=== PATIENT | male | born 1990 | race Caucasian/White ===

== ENCOUNTER 2016-07-27 18:19 | Inpatient (IN) | payer OTHER ==
[~2016-07-27 18:19] MED LIST: CONC54TA4
[2016-07-27] MEDS ORDERED: HYDROmorphone HCL PF 1 MG/ML VIAL ONE (18:23)
[2016-07-27] MEDS ORDERED: ONDANSETRON HCL 4 MG/2 ML VIAL ONE (18:23)
[2016-07-27] MEDS ORDERED: LORazepam 2 MG/ML VIAL ONE (18:29)
[2016-07-27 18:30] VITALS: O2SAT 100
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
[2016-07-27 18:48] LABS: AUTOMATED NEUTROPHIL # 5.7 TH/MM3 (1.8-7.7); BASOPHIL # 0.1 TH/MM3 (0-0.2); BASOPHIL % 0.7 % (0.0-2.0); EOSINOPHIL # 0.1 TH/MM3 (0-0.4); EOSINOPHIL % 0.9 % (0.0-4.0); HEMATOCRIT 45.4 % (39.0-51.0); HEMO FLAGS DIFF FINAL; LYMPH % 37.6 % (9.0-44.0); LYMPHOCYTE # 4.1 TH/MM3 (1.0-4.8); MEAN CELL VOLUME 86.9 FL (80.0-100.0); MEAN CORPUSCULAR HEMOGLOBIN 29.1 PG (27.0-34.0); MEAN CORPUSCULAR HGB CONC 33.5 % (32.0-36.0); MONO % 8.6 % (0.0-8.0); NEUT % 52.2 % (16.0-70.0); PLATELET COUNT 228 TH/MM3 (150-450); RED BLOOD COUNT 5.22 MIL/MM3 (4.50-5.90); RED CELL DISTRIBUTION WIDTH 14.1 % (11.6-17.2); WHITE BLOOD COUNT 10.8 TH/MM3 (4.0-11.0)
[2016-07-27 18:49] LABS: I-STAT SODIUM 140 MMOL/L (138-146)
[2016-07-27 18:59] LABS: APTT (PATIENT) 25.4 SEC (24.3-30.1); PROTHROMBIN TIME - PATIENT 10.7 SEC (9.8-11.6)
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
[2016-07-27 19:05] VITALS: BP 125/60; PULSE 67; RESP 18; TEMP 98.3; O2SAT 100
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
[2016-07-27] MEDS ORDERED: CHLORHEXIDINE GLUCONATE 2 % 1 PACK (2 CLOTHS) TOP PRN (19:15)
[2016-07-27] MEDS ORDERED: MISCELLANEOUS NURSING INFORMATION XX SCH (19:15)
[2016-07-27 19:25] VITALS: RESP 16
[2016-07-27] MEDS ORDERED: IOHEXOL 350 MG/ML 10 ML VIAL (for RAD DIAG) IV ONE (19:28)
[2016-07-27] MEDS: LACTATED RINGER'S 1000 ML INJ 1,000 ML IV SCH (19:48)
[2016-07-27 19:49] VITALS: BP 120/58; PULSE 73; RESP 18; O2SAT 98
[2016-07-27 20:16] VITALS: BP 145/67; PULSE 92; RESP 18; TEMP 98; O2SAT 99
[2016-07-27] MEDS ORDERED: DOCUSATE SODIUM 100 MG CAP PO SCH (21:00)
[2016-07-27] MEDS: ENOXAPARIN SODIUM 30 MG/0.3 ML SYRINGE SQ SCH (21:20)
[2016-07-27] MEDS: KETOROLAC TROMETHAMINE 30 MG/ML (IVP) VIAL IV PUSH SCH (21:20)
[2016-07-27] MEDS: HYDROmorphone HCL PF 1 MG/ML VIAL IVP PRN (21:23)
[2016-07-28 00:14] VITALS: BP 144/91; PULSE 126; RESP 18; TEMP 98.5; O2SAT 98
[2016-07-28] MEDS: HYDROmorphone HCL PF 1 MG/ML VIAL IVP PRN ×5 (00:30→16:59)
[2016-07-28] MEDS: KETOROLAC TROMETHAMINE 30 MG/ML (IVP) VIAL IV PUSH SCH ×4 (03:29→21:16)
[2016-07-28] MEDS: CHLORHEXIDINE GLUCONATE 2 % 1 PACK (2 CLOTHS) TOP SCH (03:29)
[2016-07-28] MEDS: ONDANSETRON HCL 4 MG/2 ML VIAL IV PRN (03:32)
[2016-07-28] MEDS: LACTATED RINGER'S 1000 ML INJ 1,000 ML IV SCH (05:08)
[2016-07-28 06:30] VITALS: BP 126/63; PULSE 100; RESP 18; TEMP 97.3; O2SAT 96
[2016-07-28 08:47] VITALS: BP 129/81; PULSE 102; RESP 16; TEMP 98.1; O2SAT 99
[2016-07-28] MEDS: SODIUM CHLORIDE 0.9% FLUSH 10 ML FLUSH IV FLUSH PRN ×2 (08:56→21:16)
[2016-07-28] MEDS: ENOXAPARIN SODIUM 30 MG/0.3 ML SYRINGE SQ SCH ×2 (08:56→21:16)
[2016-07-28] MEDS: METHOCARBAMOL 500 MG TAB PO SCH ×3 (10:05→21:15)
[2016-07-28] MEDS: FAMOTIDINE 20 MG TAB PO SCH ×2 (10:05→21:15)
[2016-07-28 10:09] LABS: AUTOMATED NEUTROPHIL # 8.3 TH/MM3 (1.8-7.7); BASOPHIL % 0.3 % (0.0-2.0); EOSINOPHIL % 0.1 % (0.0-4.0); HEMATOCRIT 40.5 % (39.0-51.0); HEMO FLAGS DIFF FINAL; LYMPHOCYTE # 1.7 TH/MM3 (1.0-4.8); MEAN CELL VOLUME 87.5 FL (80.0-100.0); MEAN CORPUSCULAR HEMOGLOBIN 28.5 PG (27.0-34.0); MEAN CORPUSCULAR HGB CONC 32.6 % (32.0-36.0); MONO % 9.4 % (0.0-8.0); NEUT % 75.2 % (16.0-70.0); PLATELET COUNT 191 TH/MM3 (150-450); RED BLOOD COUNT 4.63 MIL/MM3 (4.50-5.90); RED CELL DISTRIBUTION WIDTH 13.8 % (11.6-17.2)
[2016-07-28 11:00] LABS: BICARBONATE 26.3 MEQ/L (21.0-32.0)
[2016-07-28 11:06] LABS: POTASSIUM 4.8 MEQ/L (3.5-5.1)
[2016-07-28 11:31] VITALS: BP 122/72; PULSE 66; RESP 19; TEMP 97.5; O2SAT 98
[2016-07-28] MEDS ORDERED: oxyCODONE/ACETAMINOPHEN 5 MG/325 MG TAB PO PRN (12:15)
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
[2016-07-28] MEDS: DOCUSATE SODIUM 50 MG/SENNA 8.6 MG TAB PO SCH ×2 (14:36→21:00)
[2016-07-28 15:23] VITALS: BP 127/71; PULSE 59; RESP 18; TEMP 98.2; O2SAT 94
[2016-07-28 18:52] VITALS: BP 120/82; PULSE 58; RESP 18; TEMP 97.6; O2SAT 93
[2016-07-28] MEDS: oxyCODONE/ACETAMINOPHEN 5 MG/325 MG TAB PO PRN (21:15)
[2016-07-29] MEDS: CHLORHEXIDINE GLUCONATE 2 % 1 PACK (2 CLOTHS) TOP SCH (02:48)
[2016-07-29] MEDS: HYDROmorphone HCL PF 1 MG/ML VIAL IVP PRN ×3 (03:47→14:32)
[2016-07-29] MEDS: KETOROLAC TROMETHAMINE 30 MG/ML (IVP) VIAL IV PUSH SCH ×2 (03:47→08:33)
[2016-07-29 04:00] VITALS: BP 154/78; PULSE 64; RESP 18; TEMP 98.8; O2SAT 99
[2016-07-29] MEDS: oxyCODONE/ACETAMINOPHEN 5 MG/325 MG TAB PO PRN (05:54)
[2016-07-29] MEDS: METHOCARBAMOL 500 MG TAB PO SCH ×2 (05:54→14:31)
--- NOTE | 2016-07-29 07:28 | RADRPT ---
EXAM DATE/TIME: 07/29/2016 06:12 [facility] COMPARISON: CT THORAX W CONTRAST, July 27, 2016, 18:40. CHEST SINGLE AP, July 27, 2016, 18:13. INDICATIONS : Short of breath, pain left chest and ribs MEDICAL HISTORY : rib fracture SURGICAL HISTORY : None. ENCOUNTER: Subsequent ACUITY: 1 day PAIN SCORE: 9/10 LOCATION: Left chest FINDINGS: A single view of the chest demonstrates the lungs to be symmetrically aerated without evidence of mas s, infiltrate or effusion. The cardiomediastinal contours are unremarkable. Osseous structures are intact. CONCLUSION: No acute abnormality demonstrated. Murray Case MD on July 29, 2016 at 7:26 Board Certified Radiologist. This report was verified electronically.
[2016-07-29 07:55] VITALS: BP 123/59; PULSE 65; RESP 18; TEMP 96.2; O2SAT 96
[2016-07-29] MEDS: DOCUSATE SODIUM 50 MG/SENNA 8.6 MG TAB PO SCH (08:33)
[2016-07-29] MEDS: FAMOTIDINE 20 MG TAB PO SCH (08:33)
[2016-07-29] MEDS: ENOXAPARIN SODIUM 30 MG/0.3 ML SYRINGE SQ SCH (08:34)
[2016-07-29 08:41] LABS: AUTOMATED NEUTROPHIL # 4.5 TH/MM3 (1.8-7.7); BASOPHIL % 0.4 % (0.0-2.0); EOSINOPHIL % 0.7 % (0.0-4.0); HEMATOCRIT 38.2 % (39.0-51.0); HEMO FLAGS DIFF FINAL; LYMPH % 22.9 % (9.0-44.0); LYMPHOCYTE # 1.6 TH/MM3 (1.0-4.8); MEAN CELL VOLUME 87.5 FL (80.0-100.0); MEAN CORPUSCULAR HEMOGLOBIN 29.3 PG (27.0-34.0); MEAN CORPUSCULAR HGB CONC 33.5 % (32.0-36.0); MONO % 10.4 % (0.0-8.0); NEUT % 65.6 % (16.0-70.0); PLATELET COUNT 163 TH/MM3 (150-450); RED BLOOD COUNT 4.37 MIL/MM3 (4.50-5.90); RED CELL DISTRIBUTION WIDTH 13.8 % (11.6-17.2); WHITE BLOOD COUNT 6.9 TH/MM3 (4.0-11.0)
[2016-07-29] MEDS: ONDANSETRON HCL 4 MG/2 ML VIAL IV PRN (08:52)
[2016-07-29 09:23] LABS: ALKALINE PHOSPHATASE 60 U/L (45-117); ALT (GPT) 89 U/L (12-78); ANION GAP 7 MEQ/L (5-15); AST (GOT) 28 U/L (15-37); BICARBONATE 28.2 MEQ/L (21.0-32.0); BLOOD UREA NITROGEN 9 MG/DL (7-18); CHLORIDE 106 MEQ/L (98-107); GLOMERULAR FILTRATION RATE 137 ML/MIN (>89); POTASSIUM 3.8 MEQ/L (3.5-5.1); SODIUM (NA) 141 MEQ/L (136-145); TOTAL BILIRUBIN ADULT 0.5 MG/DL (0.2-1.0)
[2016-07-29 11:45] VITALS: BP 139/71; PULSE 67; RESP 18; TEMP 97.3; O2SAT 97
[2016-07-29] MEDS ORDERED: SENN1TAB PO (11:52)
[2016-07-29] MEDS ORDERED: METH500T3 PO (11:52)
[2016-07-29] MEDS ORDERED: WALKER WHEELS/F1 MIS (11:57)
[2016-07-29] MEDS ORDERED: OXYC1TAB63 PO (14:00)
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
== END 2016-07-29 15:52 | disposition home or self-care (01) | DRG 89 ==
LOC: NEPI 18:19 → EDBD 18:47 → NEDA 18:47 → OBSVTOIN 19:09 → MERGE 19:09 → NEDA 19:16 → NEPGCP 20:02 → N05B 07-28 18:06
PROVIDERS: ADMIT Surgery Trauma Surgery; ATTEND Surgery Trauma Surgery
DX: S06.0X0A Concussion without loss of consciousness, initial encounter (principal); S22.32XA Fracture of one rib, left side, initial encounter for closed fracture; R56.9 Unspecified convulsions; S30.0XXA Contusion of lower back and pelvis, initial encounter; V43.52XA Car driver injured in collision with other type car in traffic accident, initial encounter; Y92.410 Unspecified street and highway as the place of occurrence of the external cause
CPT/HCPCS: 70450; 71010; 71260; 72125; 72170; 74177; 80048; 80053; 80307; 82435; 82565; 82947; 84132; 84295; 84520; 85025; 85610; 85730; 86850; 86900; 86901; 94150; 96374; 96375; 99291; G0390; J1170; J1650; J1885; J2060; J2405; J7120; Q9967